=== PATIENT | male | born 1985 | race Caucasian/White ===

== ENCOUNTER → 2019-12-01 | Outpatient (CLI) | payer OTHER ==
[~2019-12-01] MED LIST: IBUP800 PO; Norco 10-325 T1 EACH PO; Zofran Odt4 MG SL
== END | disposition home or self-care (01) ==
LOC: LAB 15:35 → LAB SHORT 15:35
DX: L08.9 Local infection of the skin and subcutaneous tissue, unspecified (principal)
CPT/HCPCS: 87070; 87147; 87205

== ENCOUNTER → 2022-11-27 | Outpatient (CLI) | payer OTHER | LOC: LAB SHORT 08:25 → LAB 08:25 → PLD 08:25 | DX: A63.0 Anogenital (venereal) warts (principal) | CPT/HCPCS: 88305 ==